=== PATIENT | female | born 1990 | race Caucasian/White ===

== ENCOUNTER 2017-01-03 21:35 | Emergency (ER) | payer BC ==
[~2017-01-03] VITALS: Ht 160 cm; Wt 83.0 kg
[2017-01-04] MEDS ORDERED: PERCOCET 5/31 TABLET PO (01:18)
[2017-01-04] MEDS ORDERED: MOTRIN800 MG PO (01:18)
[2017-01-04 01:34] VITALS: BP 137/89
== END 2017-01-04 02:45 | disposition home or self-care (01) ==
LOC: EME 21:35 → EXP 21:35
PROC: 2W3RX1Z Immobilization of Left Lower Leg using Splint (ICD-10-PCS; principal; 2017-01-04)
DX: S82.842A Displaced bimalleolar fracture of left lower leg, initial encounter for closed fracture (principal); X50.1XXA Overexertion from prolonged static or awkward postures, initial encounter; Y93.64 Activity, baseball
CPT/HCPCS: 73600; 73610; 87070; 87075; 87205; 99281; 99284